=== PATIENT | male | born 1935 | race Caucasian/White ===

== ENCOUNTER 2021-01-10 14:01 | Emergency (ER) | payer OTHER ==
[2021-01-10] MEDS ORDERED: PHENYLEPHRINE 0.5% NOSE 15ML NAS ONE (14:46)
--- NOTE | 2021-01-10 16:26 | ER ---
Nurse's Notes [facility] Name: Bert Lopez Age: 85 yrs Sex: Male : 1935 Arrival Date: 01/10/2021 Time: 14:02 Bed 19 Private MD: Diagnosis: Epistaxis Presentation: 01/10 14:07 Method Of Arrival: Wheelchair aa5 14:07 Acuity: BENNY 2 aa5 14:07 Onset of symptoms was January 10, 2021. aa5 14:07 Chief complaint: Patient states: "I started with a nose bleed this morning and I got it aa5 under control and I went out to eat and then it started bleeding again about an hour ago". Bleeding noted to right nostril, nose clip applied, bleeding controlled at this time. 14:07 Coronavirus screen: At this time, the client does not indicate any symptoms associated aa5 with coronavirus-19. Ebola Screen: Patient negative for fever greater than or equal to 101.5 degrees Fahrenheit, and additional compatible Ebola Virus Disease symptoms. Initial Sepsis Screen: Does the patient meet any 2 criteria? No. Patient's initial sepsis screen is negative. Does the patient have a suspected source of infection? No. Patient's initial sepsis screen is negative. Risk Assessment: Do you want to hurt yourself or someone else? Patient reports no desire to harm self or others. Triage Assessment: 14:30 General: Appears distressed, uncomfortable, Behavior is cooperative, appropriate for bp age, anxious. Pain: Denies pain. EENT: Nares with bleeding noted. Neuro: No deficits noted. Cardiovascular: No deficits noted. Respiratory: No deficits noted. GI: No signs and/or symptoms were reported involving the gastrointestinal system. : No signs and/or symptoms were reported regarding the genitourinary system. Derm: No deficits noted. Musculoskeletal: No deficits noted. Historical: - Allergies: 14:17 No Known Allergies; aa5 - PMHx: 14:17 Hypertension; Atrial Fib; PROSTATE CA; aa5 - PSHx: 14:17 Hernia repair; Tonsillectomy; aa5 - Social history:: Smoking status: Patient denies any tobacco usage or history of. Screenin:30 Abuse screen: Denies threats or abuse. Denies injuries from another. Nutritional bp screening: No deficits noted. Tuberculosis screening: No symptoms or risk factors identified. Fall Risk None identified. Assessment: 14:30 General: SEE TRIAGE NOTE. bp 16:00 Reassessment: No changes from previously documented assessment. Patient and/or family bp updated on plan of care and expected duration. Pain level reassessed. Patient is alert, oriented x 3, equal unlabored respirations, skin warm/dry/pink. 17:00 Reassessment: PT D/C HOME AMBULATORY WITH FAMILY, DX WITH EPISTAXIS. bp Vital Signs: 14:07 BP 175 / 111; Pulse 73; Resp 18 S; Temp 98.0(TE); Pulse Ox 98% on R/A; Weight 112.94 kg aa5 (R); Height 5 ft. 11 in. (180.34 cm) (R); 16:00 BP 165 / 85; Pulse 63; Resp 16; Pulse Ox 100% ; bp 17:00 BP 169 / 95; Pulse 71; Resp 17; Temp 98; Pulse Ox 99% ; bp 14:07 Body Mass Index 34.73 (112.94 kg, 180.34 cm) aa5 ED Course: 14:02 Patient arrived in ED. as 14:07 Arm band placed on. aa5 14:11 Billy Tapia NP is PHCP. pm1 14:11 Kalen Dempsey MD is Attending Physician. pm1 14:15 Triage completed. aa5 14:30 Patient has correct armband on for positive identification. Bed in low position. Call bp light in reach. Side rails up X2. Adult w/ patient. 14:38 Alexandr Reyes, EUFEMIA is Primary Nurse. bp 16:00 Assist provider with eye exam Assist provider with nosebleed control using Afrin bp sprays, rhino rocket placed for extensive packing needs. 16:25 Rayna Encarnacion MD is Referral Physician. pm1 17:00 Patient did not have IV access during this emergency room visit. bp Administered Medications: 14:45 Drug: Favian-Synephrine [place] 0.5 % 2 sprays Route: Intranasal; Site: both nares; bp Outcome: 16:25 Discharge ordered by . pm1 17:03 Discharged to home ambulatory, with family. bp 17:03 Condition: stable 17:03 Discharge instructions given to patient, Instructed on discharge instructions, follow up and referral plans. Demonstrated understanding of instructions, follow-up care. 17:12 Patient left the ED. bp Signatures: Charlene Whipple Audri, RN RN aa5 Billy Tapia, EXPERIMENTAL MACHINIST EXPERIMENTAL MACHINIST pm1 Alexandr Reyes RN RN bp
--- NOTE | 2021-01-10 16:26 | EDPHYS ---
Physician Documentation [facility] Name: Bert Lopez Age: 85 yrs Sex: Male : 1935 Arrival Date: 01/10/2021 Time: 14:02 Bed 19 Private MD: ED Physician Kalen Dempsey HPI: 01/10 15:05 This 85 yrs old Male presents to ER via Wheelchair with complaints of Nose pm1 Bleed. 15:05 The patient presents with a nose bleed, causative factors include: NOAC and the pm1 bleeding is not resolved and continues in ER. Onset: The symptoms/episode began/occurred this morning. Modifying factors: the symptoms are aggravated by Patient believes that he accidentally took one extra dose of his NOAC. Associated signs and symptoms: Pertinent negatives: cough, ear ache, fever, lightheadedness, shortness of breath, sore throat. Severity of symptoms: in the emergency department the symptoms are unchanged. The patient has not recently seen a physician. 15:05 Patient was able to stop his nose bleed this morning with pressure. Went out to lunch pm1 with his family and then he was unable to stop it. Historical: - Allergies: 14:17 No Known Allergies; aa5 - PMHx: 14:17 Hypertension; Atrial Fib; PROSTATE CA; aa5 - PSHx: 14:17 Hernia repair; Tonsillectomy; aa5 - Social history:: Smoking status: Patient denies any tobacco usage or history of. ROS: 15:05 Constitutional: Negative for fever, chills, and weight loss. pm1 15:05 Cardiovascular: Negative for chest pain, palpitations, and edema, Respiratory: Negative for shortness of breath, cough, wheezing, and pleuritic chest pain, Neuro: Negative for headache, weakness, numbness, tingling, and seizure. 15:05 ENT: Positive for nose bleed, Negative for ear pain, sinus congestion, sinus pain, sore throat. 15:05 All other systems are negative. Exam: 15:05 Constitutional: This is a well developed, well nourished patient who is awake, alert, pm1 and in no acute distress. Head/Face: Normocephalic, atraumatic. 15:05 Skin: Warm, dry with normal turgor. Normal color with no rashes, no lesions, and no evidence of cellulitis. MS/ Extremity: Pulses equal, no cyanosis. Neurovascular intact. Full, normal range of motion. 15:05 ENT: Nose: bleeding, is seen from the right nare, clotted blood, in left nare. 15:05 Cardiovascular: Exam negative for acute changes, Rate: normal, Rhythm: regular, Pulses: no pulse deficits are appreciated. 15:05 Respiratory: Exam negative for acute changes, respiratory distress, shortness of breath. 15:05 Neuro: Exam negative for acute changes, Orientation: is normal, Mentation: is normal, Motor: is normal, moves all fours. Vital Signs: 14:07 BP 175 / 111; Pulse 73; Resp 18 S; Temp 98.0(TE); Pulse Ox 98% on R/A; Weight 112.94 kg aa5 (R); Height 5 ft. 11 in. (180.34 cm) (R); 16:00 BP 165 / 85; Pulse 63; Resp 16; Pulse Ox 100% ; bp 17:00 BP 169 / 95; Pulse 71; Resp 17; Temp 98; Pulse Ox 99% ; bp 14:07 Body Mass Index 34.73 (112.94 kg, 180.34 cm) aa5 Procedures: 22:45 Epistaxis treatment: A small amount of bleeding noted from right nare. Treated using pm1 anterior packing, Nasal tampon, Merocel, Bleeding stopped. MDM: 14:13 Patient medically screened. pm1 15:15 Data reviewed: vital signs. Data interpreted: Pulse oximetry: on room air is 98 %. pm1 Interpretation: normal. 16:25 Counseling: I had a detailed discussion with the patient and/or guardian regarding: the pm1 historical points, exam findings, and any diagnostic results supporting the discharge/admit diagnosis, the need for outpatient follow up, an ENT specialist, to return to the emergency department if symptoms worsen or persist or if there are any questions or concerns that arise at home. Administered Medications: 14:45 Drug: Favian-Synephrine [place] 0.5 % 2 sprays Route: Intranasal; Site: both nares; bp Disposition: 01/11 08:57 Co-signature as Attending Physician, Kalen Dempsey MD I agree with the assessment and rocky plan of care. Disposition: 01/10/21 16:25 Discharged to Home. Impression: Epistaxis. - Condition is Stable. - Discharge Instructions: Nosebleed, Adult. - Medication Reconciliation Form, Thank You Letter, Antibiotic Education, Prescription Opioid Use form. - Follow up: Emergency Department; When: As needed; Reason: Worsening of condition. Follow up: Private Physician; When: 2 - 3 days; Reason: Recheck today's complaints, Continuance of care, Re-evaluation by your physician. Follow up: Rayna Encarnacion; When: 2 - 3 days; Reason: Recheck today's complaints, Continuance of care, Re-evaluation by your physician. - Problem is new. - Symptoms have improved. Signatures: Kalen Dempsey MD MD cha Calderon, Audri, RN RN aa5 Billy Tapia NP SCIENTIFIC ASSOCIATE pm1 Alexandr Reyes, RN RN bp Corrections: (The following items were deleted from the chart) 01/10 17:12 16:25 01/10/2021 16:25 Discharged to Home. Impression: Epistaxis. Condition is Stable. bp Discharge Instructions: Nosebleed, Adult. Forms are Medication Reconciliation Form, Thank You Letter, Antibiotic Education, Prescription Opioid Use. Follow up: Emergency Department; When: As needed; Reason: Worsening of condition. Follow up: Private Physician; When: 2 - 3 days; Reason: Recheck today's complaints, Continuance of care, Re-evaluation by your physician. Follow up: Rayna Encarnacion; When: 2 - 3 days; Reason: Recheck today's complaints, Continuance of care, Re-evaluation by your physician. Problem is new. Symptoms have improved. pm1
[2021-01-10 17:19] VITALS: BP 169/95; TEMP 98; O2SAT 99
== END 2021-01-10 17:12 | disposition home or self-care (01) ==
LOC: ER 14:01
PROC: 2Y41X5Z Packing of Nasal Region using Packing Material (ICD-10-PCS; principal; 2021-01-10)
DX: R04.0 Epistaxis (principal); I10 Essential (primary) hypertension
CPT/HCPCS: 30901; 99283

== ENCOUNTER 2021-02-15 08:38 | Emergency (ER) | payer OTHER ==
[2021-02-15] MEDS ORDERED: NA CHLORIDE 0.9% 1,000 ML ONE (09:47)
[2021-02-15] MEDS ORDERED: PHENYLEPHRINE 0.5% NOSE 15ML NAS ONE (10:37)
[2021-02-15 10:47] LABS: Absolute Lymphocytes (CBC) 0.8 K/uL (0.7-4.9); Basophils % 0.3 % (0-1.3); Hematocrit 38.3 % (39.6-49.0); Lymphocytes % 9.1 % (15.3-44.8); MPV 7.6 fL (7.6-11.3); RBC Red Blood Cell Count 4.54 M/uL (4.33-5.43)
[2021-02-15 10:53] LABS: Protime INR 1.49
[2021-02-15 11:03] LABS: ALT/SGPT 20 U/L (12-78); AST/SGOT 16 U/L (15-37); Albumin 3.5 g/dL (3.4-5.0); Alkaline Phosphatase 82 U/L (45-117); BUN Blood Urea Nitrogen 28 mg/dL (7-18); Bicarbonate 25 mmol/L (21-32); Bilirubin Direct 0.1 mg/dL (0-0.2); Bilirubin Total 0.4 mg/dL (0.2-1.0); Glucose Level 111 mg/dL (74-106); Magnesium 2.3 mg/dL (1.8-2.4); NT PRO-BNP 242 pg/mL (<450); Potassium 4.3 mmol/L (3.5-5.1); Protein, Total 7.8 g/dL (6.4-8.2); Sodium Level 140 mmol/L (136-145); Troponin (Emerg Dept Use Only) < 0.02 ng/mL (0.0-0.045)
[2021-02-15] MEDS ORDERED: CEFTRIAXONE/SWI 1gm 1 GM/10 ML SYR ONE (11:03)
[2021-02-15] MEDS ORDERED: AMLODIPINE 10 MG TAB ONE (11:03)
[2021-02-15] MEDS ORDERED: cloNIDine HCL 0.1 MG TAB ONE (11:03)
[2021-02-15] MEDS ORDERED: METOPROLOL TAR 50 MG TAB ONE (11:03)
--- NOTE | 2021-02-15 11:19 | RAD REPORT ---
EXAM DESCRIPTION: RAD - Chest Single View - 02/15/2021 9:42 am CLINICAL HISTORY: COUGH COMPARISON: Portable January 2017 TECHNIQUE: AP portable chest image was obtained 02/15/2021 9:42 am . FINDINGS: Scattered fibrotic lung changes are present more notable in each base. Interstitial patter n matches 2017. Heart and vasculature are normal. No measurable pleural effusion and no pneumothorax. No acute bony abnormality seen. No acute aortic findings suspected. IMPRESSION: No acute cardiopulmonary process. No significant change from comparison study.
--- NOTE | 2021-02-15 11:42 | ER ---
Nurse's Notes [facility] Name: Bert Lopez Age: 85 yrs Sex: Male : 1935 Arrival Date: 02/15/2021 Time: 08:38 Bed 7 Private MD: Diagnosis: Epistaxis;Essential (primary) hypertension;Atrial fibrillation and flutter-history, on Xarelto Presentation: 02/15 08:49 Chief complaint: Patient states: Nasal bleeding since 2 am. No trauma or falls, on ll1 xarelto. Coronavirus screen: Client denies travel out of the [place] in the last 14 days. At this time, the client does not indicate any symptoms associated with coronavirus-19. Ebola Screen: Patient denies travel to an Ebola-affected area in the 21 days before illness onset. Initial Sepsis Screen: Does the patient meet any 2 criteria? No. Patient's initial sepsis screen is negative. Does the patient have a suspected source of infection? Yes: Other: nasal bleeding. Risk Assessment: Do you want to hurt yourself or someone else? Patient reports no desire to harm self or others. Onset of symptoms was February 15, 2021. 08:49 Method Of Arrival: Ambulatory ll1 08:49 Acuity: BENNY 2 ll1 Historical: - Allergies: 08:50 No Known Allergies; ll1 - Home Meds: 10:40 levothyroxine 125 mcg tab 1 tab once daily [Active]; simvastatin 20 mg Oral tab 1 tab kg once daily [Active]; finasteride 5 mg oral tab 1 tab once daily [Active]; Xarelto 20 mg oral tab 1 tab once daily [Active]; memantine 10 mg oral tab 1 tab 2 times per day [Active]; metoprolol tartrate 50 mg Oral tab 1 tab 2 times per day [Active]; esomeprazole magnesium 20 mg oral cpDR 1 cap once daily [Active]; Vitamin B-12 2500 mcg Oral TbER daily [Active]; D3-2000 oral 5000 units oral daily [Active]; - PMHx: 08:50 Atrial Fib; Hypertension; PROSTATE CA; ll1 - PSHx: 08:50 Hernia repair; Tonsillectomy; ll1 - Immunization history:: Flu vaccine is up to date. - Social history:: Smoking status: Patient denies any tobacco usage or history of. - Family history:: not pertinent. Screenin:34 Abuse screen: Denies threats or abuse. Denies injuries from another. Nutritional kg screening: No deficits noted. Tuberculosis screening: No symptoms or risk factors identified. Fall Risk None identified. No fall in past 12 months (0 pts). No secondary diagnosis (0 pts). No IV (0 pts). Ambulatory Aid- None/Bed Rest/Nurse Assist (0 pts). Gait- Normal/Bed Rest/Wheelchair (0 pts) Mental Status- Oriented to own ability (0 pts). Total Jiang Fall Scale indicates No Risk (0-24 pts). Assessment: 09:32 General: Appears in no apparent distress. Behavior is calm, cooperative, appropriate kg for age, quiet. Pain: Denies pain. Neuro: No deficits noted. Cardiovascular: No deficits noted. Respiratory: No deficits noted. GI: No deficits noted. : No deficits noted. EENT: Nares with bleeding noted. Derm: No deficits noted. Musculoskeletal: No deficits noted. Vital Signs: 08:49 BP 187 / 123; Pulse 88; Resp 18; Temp 97.2; Pulse Ox 97% on R/A; Weight 107.95 kg; ll1 Height 5 ft. 11 in. (180.34 cm); Pain 0/10; 09:30 BP 164 / 113; Pulse 96; Resp 20; Pulse Ox 96% ; kg 09:30 BP 166 / 125; Pulse 96; Resp 20; Pulse Ox 96% on R/A; kg 10:00 BP 157 / 119; Pulse 90; Resp 20; Pulse Ox 99% on R/A; kg 11:00 BP 175 / 130; Pulse 92; Resp 20; Pulse Ox 97% ; kg 12:00 BP 162 / 116; Pulse 90; Resp 20; Pulse Ox 99% on R/A; kg 08:49 Body Mass Index 33.19 (107.95 kg, 180.34 cm) ll1 ED Course: 08:38 Patient arrived in ED. as 08:44 Arm band placed on Patient placed in an exam room, on a stretcher. ll1 08:46 Kalen Dempsey MD is Attending Physician. [facility] 08:50 Triage completed. ll1 09:24 Bárbara Acevedo is Primary Nurse. kg 09:35 Patient has correct armband on for positive identification. Bed in low position. Call kg light in reach. Side rails up X2. Adult w/ patient. 09:42 XRAY Chest (1 view) In Process Unspecified. EDMS 10:30 Inserted saline lock: 20 gauge in right antecubital area, using aseptic technique. kg 11:42 Chloe Ascencio MD is Referral Physician. rocky Administered Medications: 10:29 CANCELLED (Duplicate Order): Rocephin (cefTRIAXone) 1 grams IV at per protocol once; rocky Given slow IV push per pharmacy instructions 10:43 Drug: NS 0.9% 1000 ml Route: IV; Rate: 75 ml/hr; Site: right antecubital; kg 12:01 Follow up: Response: No adverse reaction; IV Status: Completed infusion; IV Intake: kg 1000ml 10:43 Drug: cloNIDine 0.1 mg Route: PO; kg 12:01 Follow up: Response: No adverse reaction kg 10:43 Drug: Norvasc (amlodipine) 10 mg Route: PO; kg 12:01 Follow up: Response: No adverse reaction kg 10:43 Drug: Lopressor (metoprolol TARTRATE) 50 mg Route: PO; kg 12:01 Follow up: Response: No adverse reaction kg 10:44 Drug: Rocephin (cefTRIAXone) 1 grams Route: IV; Rate: per protocol; Site: right kg antecubital; Intake: 12:01 IV: 1000ml; Total: 1000ml. kg Outcome: 11:42 Discharge ordered by . rocky 12:01 Patient left the ED. kg Signatures: Dispatcher [employer] EDKalen Leblanc MD MD cha Martinez, Amelia as Lewis, Lynsay RN RN ll1 Bárbara Acevedo kg
--- NOTE | 2021-02-15 11:42 | EDPHYS ---
Physician Documentation [facility] Name: Bert Lopez Age: 85 yrs Sex: Male : 1935 Arrival Date: 02/15/2021 Time: 08:38 Bed 7 Private MD: ED Physician Kalen Dempsey HPI: 02/15 10:25 This 85 yrs old Male presents to ER via Ambulatory with complaints of Nose rocky Bleed. 10:25 The patient presents with a nose bleed, and the bleeding resolved prior to arrival. rocky Onset: The symptoms/episode began/occurred 1 day(s) ago. Modifying factors: The symptoms are alleviated by nothing. the symptoms are aggravated by blowing nose. Associated signs and symptoms: The patient has no apparent associated signs or symptoms. Severity of symptoms: At their worst the symptoms were mild in the emergency department the symptoms have improved moderately. The patient has experienced similar episodes in the past, multiple times. Historical: - Allergies: 08:50 No Known Allergies; ll1 - Home Meds: 10:40 levothyroxine 125 mcg tab 1 tab once daily [Active]; simvastatin 20 mg Oral tab 1 tab kg once daily [Active]; finasteride 5 mg oral tab 1 tab once daily [Active]; Xarelto 20 mg oral tab 1 tab once daily [Active]; memantine 10 mg oral tab 1 tab 2 times per day [Active]; metoprolol tartrate 50 mg Oral tab 1 tab 2 times per day [Active]; esomeprazole magnesium 20 mg oral cpDR 1 cap once daily [Active]; Vitamin B-12 2500 mcg Oral TbER daily [Active]; D3-2000 oral 5000 units oral daily [Active]; - PMHx: 08:50 Atrial Fib; Hypertension; PROSTATE CA; ll1 - PSHx: 08:50 Hernia repair; Tonsillectomy; ll1 - Immunization history:: Flu vaccine is up to date. - Social history:: Smoking status: Patient denies any tobacco usage or history of. - Family history:: not pertinent. ROS: 10:25 Constitutional: Negative for fever, chills, and weight loss, Eyes: Negative for injury, rocky pain, redness, and discharge, Neck: Negative for injury, pain, and swelling, Cardiovascular: Negative for chest pain, palpitations, and edema, Respiratory: Negative for shortness of breath, cough, wheezing, and pleuritic chest pain, Abdomen/GI: Negative for abdominal pain, nausea, vomiting, diarrhea, and constipation, Back: Negative for injury and pain, : Negative for injury, bleeding, discharge, and swelling, MS/Extremity: Negative for injury and deformity, Skin: Negative for injury, rash, and discoloration, Neuro: Negative for headache, weakness, numbness, tingling, and seizure, Psych: Negative for depression, anxiety, suicide ideation, homicidal ideation, and hallucinations, Allergy/Immunology: Negative for hives, rash, and allergies, Endocrine: Negative for neck swelling, polydipsia, polyuria, polyphagia, and marked weight changes. 10:25 ENT: Positive for nose bleed. Exam: 10:25 Constitutional: This is a well developed, well nourished patient who is awake, alert, rocky and in no acute distress. Head/Face: Normocephalic, atraumatic. Eyes: Pupils equal round and reactive to light, extra-ocular motions intact. Lids and lashes normal. Conjunctiva and sclera are non-icteric and not injected. Cornea within normal limits. Periorbital areas with no swelling, redness, or edema. Neck: Trachea midline, no thyromegaly or masses palpated, and no cervical lymphadenopathy. Supple, full range of motion without nuchal rigidity, or vertebral point tenderness. No Meningismus. Chest/axilla: Normal chest wall appearance and motion. Nontender with no deformity. No lesions are appreciated. Cardiovascular: Regular rate and rhythm with a normal S1 and S2. No gallops, murmurs, or rubs. Normal PMI, no JVD. No pulse deficits. Respiratory: Lungs have equal breath sounds bilaterally, clear to auscultation and percussion. No rales, rhonchi or wheezes noted. No increased work of breathing, no retractions or nasal flaring. Abdomen/GI: Soft, non-tender, with normal bowel sounds. No distension or tympany. No guarding or rebound. No evidence of tenderness throughout. Back: No spinal tenderness. No costovertebral tenderness. Full range of motion. Skin: Warm, dry with normal turgor. Normal color with no rashes, no lesions, and no evidence of cellulitis. MS/ Extremity: Pulses equal, no cyanosis. Neurovascular intact. Full, normal range of motion. Neuro: Awake and alert, GCS 15, oriented to person, place, time, and situation. Cranial nerves II-XII grossly intact. Motor strength 5/5 in all extremities. Sensory grossly intact. Cerebellar exam normal. Normal gait. Psych: Awake, alert, with orientation to person, place and time. Behavior, mood, and affect are within normal limits. 10:25 ENT: Nose: External nose: no obvious acute abnormality, Nasal septum: is midline. 10:32 ECG was reviewed by the Attending Physician. [facility] Vital Signs: 08:49 BP 187 / 123; Pulse 88; Resp 18; Temp 97.2; Pulse Ox 97% on R/A; Weight 107.95 kg; ll1 Height 5 ft. 11 in. (180.34 cm); Pain 0/10; 09:30 BP 164 / 113; Pulse 96; Resp 20; Pulse Ox 96% ; kg 09:30 BP 166 / 125; Pulse 96; Resp 20; Pulse Ox 96% on R/A; kg 10:00 BP 157 / 119; Pulse 90; Resp 20; Pulse Ox 99% on R/A; kg 11:00 BP 175 / 130; Pulse 92; Resp 20; Pulse Ox 97% ; kg 12:00 BP 162 / 116; Pulse 90; Resp 20; Pulse Ox 99% on R/A; kg 08:49 Body Mass Index 33.19 (107.95 kg, 180.34 cm) ll1 MDM: 08:46 Patient medically screened. [facility] 11:41 Differential diagnosis: trauma, spontaneous epistaxis. Data reviewed: vital signs, [facility] nurses notes, lab test result(s), EKG, radiologic studies, CT scan, plain films. Data interpreted: telecommunication engineer: rate is 90 beats/min, rhythm is regular, Pulse oximetry: on room air is 99 %. Test interpretation: by ED physician or midlevel provider: ECG, plain radiologic studies. Counseling: I had a detailed discussion with the patient and/or guardian regarding: the historical points, exam findings, and any diagnostic results supporting the discharge/admit diagnosis, lab results, radiology results, the need for outpatient follow up, for definitive care, an ENT specialist, a family practitioner. 02/15 08:48 Order name: Basic Metabolic Panel; Complete Time: 11:40 [facility] 02/15 08:48 Order name: CBC with Diff 02/15 08:48 Order name: LFT's; Complete Time: 11:40 [facility] 02/15 08:48 Order name: Magnesium; Complete Time: 11:40 [facility] 02/15 08:48 Order name: NT PRO-BNP; Complete Time: 11:40 [facility] 02/15 08:48 Order name: PT-INR; Complete Time: 11:40 [facility] 02/15 08:48 Order name: Troponin (emerg Dept Use Only); Complete Time: 11:40 [facility] 02/15 08:48 Order name: XRAY Chest (1 view); Complete Time: 11:40 [facility] 02/15 08:48 Order name: EKG; Complete Time: 08:49 [facility] 02/15 08:48 Order name: Cardiac monitoring; Complete Time: 09: [facility] 02/15 08:48 Order name: EKG - Nurse/Tech; Complete Time: 09: [facility] 02/15 08:48 Order name: IV Saline Lock; Complete Time: 09: [facility] 02/15 08:48 Order name: Labs collected and sent; Complete Time: 09: [facility] 02/15 08:48 Order name: O2 Per Protocol; Complete Time: 09: [facility] 02/15 08:48 Order name: O2 Sat Monitoring; Complete Time: 09: [facility] 02/15 08:48 Order name: Misc. Order: nasal tray, ion synephrine spray, rhino rocket; Complete Time: [facility] 10:21 EC:32 Rate is 92 beats/min. Rhythm is regular. QRS [place] is Normal. NC interval is normal. QRS rocky interval is normal. QT interval is normal. No Q waves. T waves are Normal. No ST changes noted. Clinical impression: Normal ECG, 1st degree heart block, and No evidence of ischemia. Interpreted by me. Reviewed by me. Administered Medications: 10:29 CANCELLED (Duplicate Order): Rocephin (cefTRIAXone) 1 grams IV at per protocol once; rocky Given slow IV push per pharmacy instructions 10:43 Drug: NS 0.9% 1000 ml Route: IV; Rate: 75 ml/hr; Site: right antecubital; kg 12:01 Follow up: Response: No adverse reaction; IV Status: Completed infusion; IV Intake: kg 1000ml 10:43 Drug: cloNIDine 0.1 mg Route: PO; kg 12:01 Follow up: Response: No adverse reaction kg 10:43 Drug: Norvasc (amlodipine) 10 mg Route: PO; kg 12:01 Follow up: Response: No adverse reaction kg 10:43 Drug: Lopressor (metoprolol TARTRATE) 50 mg Route: PO; kg 12:01 Follow up: Response: No adverse reaction kg 10:44 Drug: Rocephin (cefTRIAXone) 1 grams Route: IV; Rate: per protocol; Site: right kg antecubital; Disposition: 02/15/21 11:42 Discharged to Home. Impression: Epistaxis, Essential (primary) hypertension, Atrial fibrillation and flutter - history, on Xarelto. - Condition is Stable. - Discharge Instructions: Nosebleed, Adult, Hypertension, Hypertension, [id number], How to Take Your Blood Pressure, Ljul-po-Yeum, Nosebleed, Gxiq-bq-Ozhc, Managing Your Hypertension. - Prescriptions for Augmentin 875- 125 mg Oral Tablet - take 1 tablet by ORAL route every 12 hours for 10 days; 20 tablet. Lopressor 50 mg Oral Tablet - take 1 tablet by ORAL route every 12 hours; 30 tablet. Norvasc 5 mg Oral Tablet - take 1 tablet by ORAL route once daily; 20 tablet. - Medication Reconciliation Form, Thank You Letter, Antibiotic Education, Prescription Opioid Use form. - Follow up: Private Physician; When: 1 - 2 days; Reason: Recheck today's complaints, Continuance of care, Re-evaluation by your physician. Follow up: Chloe Ascencio; When: 2 - 3 days; Reason: Recheck today's complaints, Re-evaluation by your physician. - Problem is new. - Symptoms have improved. Signatures: Dispatcher [employer] EDCA Kalen Dempsey MD MD cha Lewis, Lynsay RN RN ll1 Bárbara Acevedo kg Corrections: (The following items were deleted from the chart) 10:29 10:29 Rocephin (cefTRIAXone) 1 grams IV at per protocol once; Given slow IV push per [facility] pharmacy instructions ordered. [facility] 12:01 11:42 02/15/2021 11:42 Discharged to Home. Impression: Epistaxis; Essential (primary) kg hypertension; Atrial fibrillation and flutter - history, on Xarelto. Condition is Stable. Discharge Instructions: Nosebleed, Adult, Hypertension, Hypertension, Qxmf-sq-[id number], How to Take Your Blood Pressure, Nlqb-gz-Wurx, Nosebleed, Azdc-pa-Sjow, Managing Your Hypertension. Prescriptions for Augmentin 875-125 mg Oral Tablet - take 1 tablet by ORAL route every 12 hours for 10 days; 20 tablet, Lopressor 50 mg Oral Tablet - take 1 tablet by ORAL route every 12 hours; 30 tablet, Norvasc 5 mg Oral Tablet - take 1 tablet by ORAL route once daily; 20 tablet. and Forms are Medication Reconciliation Form, Thank You Letter, Antibiotic Education, Prescription Opioid Use. Follow up: Private Physician; When: 1 - 2 days; Reason: Recheck today's complaints, Continuance of care, Re-evaluation by your physician. Follow up: Chloe Ascencio; When: 2 - 3 days; Reason: Recheck today's complaints, Re-evaluation by your physician. Problem is new. Symptoms have improved. rocky
[2021-02-15 12:16] VITALS: TEMP 97.2
[2021-02-15 12:17] LABS: Blood Morphology Comment NOT SEEN (NOT SEEN); Platelet Estimate ADEQ
[2021-02-15 12:24] VITALS: BP 162/116; O2SAT 99
--- NOTE | 2021-02-16 11:35 | EKG ---
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
== END 2021-02-15 12:01 | disposition home or self-care (01) ==
LOC: ER 08:38
PROC: 2Y41X5Z Packing of Nasal Region using Packing Material (ICD-10-PCS; principal; 2021-02-15)
DX: R04.0 Epistaxis (principal); I10 Essential (primary) hypertension; I48.91 Unspecified atrial fibrillation; I48.92 Unspecified atrial flutter; Z79.01 Long term (current) use of anticoagulants; Z85.46 Personal history of malignant neoplasm of prostate
CPT/HCPCS: 96361; 93005; 85025; 80048; 36415; 83735; 85610; 80076; 84484; 83880; 71045; 96374; 99284; 30901; J0696; J7030

== ENCOUNTER 2025-06-07 11:05 | Inpatient (IN) | payer OTHER ==
[2025-06-07 11:29] VITALS: BMI 28.4
[2025-06-07] MEDS ORDERED: MAGNESIUM HYDROXIDE 8% 30 ML PO PRN (12:30)
[2025-06-07] MEDS ORDERED: ACETAMINOPHEN 325 MG TABLET PO PRN ×2 (12:56→20:06)
[2025-06-07 13:03] LABS: Urine Microscopic Reflex YN NO UMIC
[2025-06-07] MEDS: BACLOFEN 10 MG TAB PO SCH ×2 (14:19→20:47)
[2025-06-07] MEDS: COCONUT OIL PO SCH (20:00)
[2025-06-07] MEDS: METOPROLOL XL 25 MG TAB PO SCH ×2 (20:00→20:47)
[2025-06-07] MEDS: [UNRECOGNIZED DRUG - OTHER] PO SCH (20:00)
[2025-06-07] MEDS ORDERED: GUAIFENESIN/DM 5 ML UCUP PO PRN (20:04)
[2025-06-07] MEDS ORDERED: TRAMADOL HCL 50 MG TAB PO PRN (20:04)
[2025-06-07] MEDS: MEMANTINE HCL 10 MG TABLET PO SCH (20:44)
[2025-06-07] MEDS: RIVAROXABAN 15 MG TABLET PO SCH (20:44)
[2025-06-07] MEDS: ATORVASTATIN 10 MG TAB PO SCH (20:44)
[2025-06-07] MEDS: MELATONIN 5 MG TABLET PO SCH (20:44)
[2025-06-07] MEDS: CIPROFLOXACIN HCL 500 MG TAB PO SCH (20:44)
[2025-06-07] MEDS: LORATADINE 10 MG TAB PO SCH (20:44)
[2025-06-07] MEDS: DONEPEZIL HCL 5 MG TAB PO SCH (20:47)
[2025-06-07] MEDS ORDERED: DONEPEZIL HCL 5 MG TAB PO SCH (21:00)
[2025-06-08 06:07] LABS: Absolute Lymphocytes (CBC) 0.9 K/uL (0.7-4.9); Hematocrit 28.1 % (39.6-49.0); Hemoglobin 9.2 g/dL (13.6-17.9); MCH 27.0 pg (27.0-35.0); MCHC 32.8 g/dL (32.0-36.0); MCV 82.2 fL (80-100); MPV 6.8 fL (7.6-11.3); Nucleated RBC Absolute Count 0.0 (0-0); Nucleated Red Blood Cells % 0.0 % (0-0); RBC Red Blood Cell Count 3.42 M/uL (4.33-5.43); White Blood Count 5.80 thou/uL (4.3-10.9)
[2025-06-08] MEDS: PANTOPRAZOLE 40MG TABLET PO SCH (06:19)
[2025-06-08] MEDS: LEVOTHYROXINE SOD 0.125 MG TAB PO SCH (06:19)
[2025-06-08 06:50] LABS: AST/SGOT 12.0 U/L (15-37); BUN Blood Urea Nitrogen 10.0 mg/dL (7-18); Glucose Level 131.0 mg/dL (74-106); Magnesium 2.2; Potassium 3.8 mEq/L (3.5-5.1)
[2025-06-08 06:51] LABS: ALT/SGPT 11.0 U/L (16-61); Albumin 2.6 g/dL (3.4-5.0); Albumin/Globulin Ratio 0.7 (1.1-1.8); Alkaline Phosphatase 858.0 U/L (45-117); Globulin 3.7 g/dL (2.3-3.5); Prealbumin 16.3 mg/dL (20-40)
[2025-06-08 06:52] LABS: Anion Gap 9.8 mEq/L (5.0-15.0); Thyroid Stimulating Hormone 2.43 uIU/mL (0.358-3.740)
[2025-06-08] MEDS: AMLODIPINE 5 MG TAB PO SCH (08:00)
[2025-06-08] MEDS ORDERED: AMLODIPINE 5 MG TAB PO SCH (08:00)
[2025-06-08] MEDS: VITAMIN D 1000 UNIT TAB PO SCH (08:29)
[2025-06-08] MEDS: CYANOCOBALAMIN 1,000 MCG TAB PO SCH (08:29)
[2025-06-08] MEDS: PSYLLIUM 1 PKT PO SCH (08:30)
[2025-06-08] MEDS: FINASTERIDE 5 MG TAB PO SCH (08:30)
[2025-06-08] MEDS: FERROUS SULFATE 325 MG TAB PO SCH (08:30)
--- NOTE | 2025-06-08 09:11 | HP ---
Date of Admission: 06/08/2025 Chief Complaint: Right knee pain. History Of Present Illness: This is an 89-year-old male patient, who was living at home, fell down on April 24, 2025 and was brought into an emergency room, was diagnosed as having fracture of the right patella and was transferred to outside hospital where he actually had surgery done by Dr. Francisco Lynch. After the surgery, the patient was sent to [facility] in [place] and yesterday, he was brought into our inpatient rehab for rehab therapy. I saw him this morning. There was no family member at bedside. I have reviewed available records from outside facility this morning. The patient denies any complaints this morning when I saw him. Allergies: NO KNOWN ALLERGIES. Medications: Amlodipine 5 mg daily, Nubeqa as prescribed by oncologist, donepezil 10 mg daily, finasteride 5 mg daily, levothyroxine 125 mcg daily, memantine 10 mg 2 times a day, metoprolol 25 mg 2 times a day, omeprazole 20 mg daily, Xarelto 15 mg daily, and simvastatin 20 mg daily at bedtime. Review of Systems: Musculoskeletal: Right knee pain. ACID BATH MIXER: Impaired memory. All other systems reviewed and negative. Past Medical History: Significant for hypertension, paroxysmal atrial fibrillation, hyperlipidemia, chronic anticoagulation therapy, prostate cancer, gastroesophageal reflux disease, colon cancer, chronic kidney disease stage IIIA, and vascular dementia. Past Surgical History: Recent surgery for right patella fracture and in the past, he had tonsillectomy, hernia repair, partial destruction of colon for colon cancer in 2018. Social History: Negative for smoking, alcohol use. Family History: Father , had dementia. Mother , had pericarditis. Brother , had melanoma. Physical Examination: Vital Signs: Temperature 97.5, pulse 72, respiratory rate 18, blood pressure 119/73, oxygen saturation 97% on room air. Height 5 feet 11 inches, weight 204 pounds. General: Awake, alert, oriented, not in distress. HEENT: Head atraumatic, normocephalic. Conjunctivae nonerythematous. Sclerae white. Mouth, no thrush or edema noted. Ears/Nose, no mass, lesion, discharge noted. Neck: Supple. No JVD, lymph nodes, bruit, thyromegaly noted. Lungs: Bilateral good equal air entry. Clear to auscultation. No rhonchi. No rales. Heart: Normal heart sounds, no murmur or gallop. Abdomen: Soft, bowel sounds normal. No guarding, rigidity, tenderness, mass, hepatosplenomegaly, distention, or bruit noted. Extremities: Right lower extremity has external brace in place. Visible area of the right anterior knee has very well-healed surgical scar. No evidence of any redness or swelling. Skin: No rash, ulcer, cellulitis. Lymphatics: No lymph node enlargement in neck, supraclavicular, infraclavicular region. Neuro: No focal neurological deficit. Chest: Unremarkable. External Genitalia: Deferred. Rectal: Deferred. Laboratory Data: Urinalysis normal. WBC 5.8, hemoglobin 9.2, platelets 231. Sodium 140, potassium 3.8, chloride 110, bicarb 24, BUN 10, creatinine 0.88, glucose 131. Liver function tests unremarkable. Pre-albumin 16.3, albumin 2.6. TSH 2.430. His knee x-ray from April 24, 2025, emergency room visit showed diffuse areas of sclerosis throughout the bony structure indicating metastatic disease and fracture involving mid aspect of the patella with minimal distraction, moderate osteoarthritis of knee. Impression: 1. Right patella fracture, transverse, with displacement, initial visit, status post surgery. 2. Anemia, chronic, unspecified. 3. Vascular dementia. 4. Hypertension. 5. Hyperlipidemia. 6. Paroxysmal atrial fibrillation. 7. Chronic kidney disease stage 3A. 8. 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 9. Colon cancer. 10. Gastroesophageal reflux disease. Plan: We will go ahead and admit the patient to inpatient rehab. Consult Dr. Palma to manage rehab therapy. I will continue to manage his medical management while on the rehab floor. For hypertension, we will continue his antihypertensive medication with monitoring of blood pressure if necessary adjust medication. For his vascular dementia, we will continue his donepezil and memantine per order. No need for further intervention. For hypothyroidism, he is on levothyroxine, which we will continue that, will not require any further intervention. For gastroesophageal reflux disease, we will continue his proton pump inhibitor therapy and no need for further intervention. The patient is on chronic anticoagulation therapy for atrial fibrillation with Xarelto, which will be continued. For hyperlipidemia, continue his statin therapy and no need for further intervention. Total time spent 65 minutes including review of outside medical record, review of emergency room visit record from 04/24/2025, review of last office visit record from 01/30/2025 and performing today's evaluation and management. TRAVIS/ADDIE Voice ID: [id number] DENTON
--- NOTE | 2025-06-08 14:46 | HP ---
Date of Admission: 06/07/2025 Time Of Service: 9 a.m. History Of The Present Illness: Mr. Lopez is an 89-year-old patient with bilateral lower extremity neuropathy, hypertension, obstructive sleep apnea, hypothyroidism, colon cancer about to start chemo, dyslipidemia, dementia, late onset Alzheimer. He was independent at home, living with his and children on their property, taking care of his own activities of daily living including driving when on 04/24/2025, he fell at home. He hit his right knee, had severe pain, was seen at [facility] , and found to have a right patella fracture. 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 He was referred to inpatient rehabilitation due to his medical compl exity and functional decline and acute surgery; however, that request was declined. However, the den ial was subsequently overturned on appeal and while awaiting clearance for his nonweightbearing statu s, he was sent to senior care to begin to improve. During senior care stay, he developed COVID and was put in isolation delaying his functional prog ression. On 06/03, he developed worsening confusion and was diagnosed with urinary tract infection a nd treated with Cipro. Also, he was at that time found to be more confused with sundowning. Further more, he had a drop in hemoglobin and hematocrit requiring the need potentially for transfusion and h ad to be monitored. On 06/07/2025, he set up to begin for colon cancer Nubeqa chemotherapy. In donny tion, chemotherapy as noted would likely worsen cognitive functioning and required more careful close medical monitoring. Mr. Lopez was evaluated by Therapy Service and found to require setup assistance for bed mobilizatio n, ambulation of 800 feet with a rolling walker due to the immobilizer and requiring Speech due to wo rsening cognitive functioning from his prolonged hospitalization care in senior care and patella fracture. He required izr-hu-cjpyl transfers at moderate to maximal assistance level. Lower body dr angela moderate to maximum assistance and cognitively oriented to person and requiring verbal cues fo r problem solving and to help him improve decision making and safety awareness. It was necessary for him to receive all disciplines of therapy as if he were to be discharged home or back to skilled [facility], he will likely worsen and . At inpatient rehabilitation, he will receive intensive coordinated interdisciplinary rehabilitation f rom physical, occupational, and speech therapy along with daily physician evaluation, social work lecturer , and 24-hour 7-day a week nursing. The recent orthopedic surgery, infections, instability of his he moglobin and hematocrit, and initiation of chemotherapy proved to be a complex case and cannot be man aged as noted at a lower level of care. Inpatient rehabilitation is necessary as if he were to be di scharged at a lower level of facility with chances of improving with return to his prior l evel of functioning. Past Medical History: As noted above. Past Surgical History: Colon resection, cataract extraction in addition to his comorbidities of atri al fibrillation, hypothyroidism, obstructive sleep apnea, hypertension, lower extremity neuropathy, g astroesophageal reflux disease, and Alzheimer disease. Allergies: NO KNOWN DRUG ALLERGIES. Medications: Tylenol 650 mg every 4 hours as needed, Norvasc 5 mg daily, Lipitor 10 mg at bedtime, b aclofen 5 mg twice daily, ciprofloxacin 500 mg twice daily, vitamin B12 1000 mg daily, Aricept 10 mg twice daily, ferrous sulfate 325 mg daily, Proscar 5 mg daily, Synthroid 0.125 mg daily, Claritin 5 m g at bedtime, milk of magnesia 30 mg daily, melatonin 5 mg at bedtime, Namenda 10 mg twice daily, Top rol 25 mg twice daily, Protonix 40 mg daily, Metamucil 1 packet daily, Xarelto 15 mg at bedtime, tram adol 50 mg every 4 hours as needed. Laboratory Studies: White blood cell count 5.8, hemoglobin 9.2, platelets 231. Sodium 140, potassiu m 3.8, chloride 110, carbon dioxide 24, BUN 10, creatinine 0.88, calcium 8.5, magnesium 2.2, albumin 3.7. AST 12, ALT 11, alkaline phosphate . TSH is 2.43. Urinalysis from the 13 complete ly normal. X-ray imaging pending. Family History: Noncontributory. Social History: The patient lives with and daughters and on his daughter's property. He was pr eviously independent with all of his activities with no alcohol, tobacco, or IV drug use. He was mob ile. Review of Systems: Currently, he denies any significant pain . No fevers or chills. Denies any myalgias, art hralgias, rash, headache. He is very happy and smiling and is ready to engage in his therapy. Current Level Of Functioning: Currently, Mr. Lopez is independent for eating, moderate assistance f or grooming, maximum assistance for bathing, standby assistance for upper body dressing, maximal assi stance for lower body dressing and for donning and doffing footwear. For his toileting, moderate ass istance. Transfer from bed to chair to wheelchair, and to toilet, moderate assistance. Ambulation, he covered 100 feet with setup assistance, wheelchair 10 feet with moderate assistance. Physical Examination: Vital Signs: Blood pressure 119/73, respiratory rate 18, temperature 97.5, and pulse 72, oxygen satu ration 97%. Weight 204 pounds, height 5 feet 11 inches, BMI of 28.5. General: Mr. Lopez is resting in bed in between therapy sessions. HEENT: He is normocephalic, atraumatic. Sclerae anicteric. Oropharynx pink and moist. Neck: Supple. Extremities: He does have the right knee brace in place and a well healed incision perpendicular amira ng the surface of the knee going into the leg and from the thigh and the brace is in place across the knee and thigh and the leg. In terms of focal deficits, he has no focal neurological deficits. Some difficulty following command s. Oriented to person, difficulty following complex commands. With the cuing, he is able to follow those well. Rehab And Medical Assessment And Plan: Mr. Lopez is an 89-year-old patient in the rehabilitation [facility] with impairment category 09, orthopedic. Impairment group code is 08.9, other orthopedic. [facility] diagnosis; right patella fracture. Comorbid Conditions: Alzheimer disease, decreased mobility, decreased physical function, lower extre mity neuropathy, hypertension, atrial fibrillation, hypothyroidism, colon cancer, chemothe rapy, dyslipidemia. Plan: We will have physical, occupational, and speech therapy for 3-1/2 hours 5 of 7 days. His isaac rbid conditions are managed by Dr. Villalta, his primary care physician. We will continue with Norvasc 5 mg daily and metoprolol 25 mg twice daily for blood pressure and heart rate control, ferrous sulfate 325 mg daily for his iron deficiency, continue his Cipro from 06/07 to 06/12 for his urinary tract i nfection, baclofen 5 mg twice a day for muscle spasms, Tylenol for pain, vitamin D on board supplemen t along with vitamin B12 supplementation. He has Aricept 10 mg twice daily along with Namenda 10 mg twice daily for Alzheimer disease, melatonin for insomnia, milk of magnesia for stool softening, laxa tives. He has Claritin for allergies, Xarelto for his atrial fibrillation, tramadol for pain. Comorbidities That Are Impacting Rehabilitation: As noted, Mr. Lopez does have cognitive impairment due to Alzheimer dementia and will require constant cuing for reminders to be aware of hazardous iss ues and to avoid risk of additional falls. He does have a knee brace in place and will be kept in pl art when he is mobilizing. He has weightbearing status where initially he was nonweightbearing after his surgery, which is now over a month and half ago, which is at 6 weeks and will be clarified with Surgery if he is full weightbearing or touchdown weightbearing or partial. He has additional risks from chemotherapy, anemia, infection in a complicated case where potentially he will require IV antibiotics, transfusion and may make impulsive decisions as well. He will be ___ station and chair alarm and bed alarm will be in place. Rehab Specific Plan: Mr. Lopez will have physical, occupational and speech therapy 3.5 hours, 5 of 7 days to improve his ability to transfer from a bed to a chair, to a wheelchair, to a rolling walker , on and off the toilet, in and out of shower, to perform toileting and showering, to dress upper low er body, to make safe decisions regarding his mobilization, transfers and medication management. Mr. Lopez has a fair understanding of the process of admission to the inpatient rehabilitation unit and how he will benefit from physical, occupational, and speech therapy. He will have 24 hours a day 7 days a week skilled rehabilitation nursing, daily physician evaluation and management, and social work lecturer evaluation and management for discharge planning, home equipment, and to have a physician gerry samano. At this point, he will be followed by Dr. Villalta, his primary care physician. Barriers To Discharge: He at this point has a cognitive issue, which may be a barrier; however, he d oes have family at home that can provide 24-hour supervision that he would require after going home a nd did anticipate he would not require senior care as he is expected to do very well t here. In terms of other barriers chemotherapy; however, those can be overcome with enough assistance and input from family and caregivers. Length Of Stay: About 10 days. Disposition: Expected to be home with family and continue therapy via Home Health. Prognosis: Good. Code Status: Full code. Rehab Specific Goals: 1. Become independent with upper body dressing and donning and doffing footwear. 2. Independently perform all activities of daily living. 3. Independently mobilize 250 feet with a rolling walker and wheelchair and up and down 10 steps inde pendently. 4. Perform cognitive functioning with supervision. The above goals were reviewed with Mr. Lopez and he is in agreement. By signing this document, I acknowledge I personally performed a full physical examination on Mr. Jose Antonio koehler no later than 24 hours after his admission to the inpatient rehabilitation unit and determined he is able to tolerate the above course of treatment at an intensive level for a reasonable period of t lencho. A detailed individualized plan of care for him will be completed by hospital day 4 based on the preadmission screen, history and physical and therapy evaluations. KAJAL Voice ID: [id number]
[2025-06-08] MEDS: [UNRECOGNIZED DRUG - OTHER] PO SCH (19:14)
[2025-06-08] MEDS: COCONUT OIL PO SCH (19:14)
--- NOTE | 2025-06-09 21:22 | PN ---
Date of Progress Note: 06/09/2025 Subjective: The patient was seen this morning for followup. He was lying in bed, not in any distres s. Denies any abdominal pain, nausea, or vomiting. Objective: Vital Signs: Reviewed. HEENT: Unremarkable. Lungs: Clear to auscultation. Heart: Sounds normal. Abdomen: Soft. Bowel sounds normal. No guarding, rigidity, tenderness, distention. Extremities: No leg edema. Impression: 1. Right patella fracture. 2. Hypertension. 3. Vascular dementia. Plan: Continue current medication. Continue physical therapy under guidance of Dr. Palma, and I will see him tomorrow for followup. TRAVIS/MODL Voice ID: [id number] Report ID: [id number]
--- NOTE | 2025-06-09 21:43 | PN ---
Date of Progress Note: 06/09/2025 Time: 1 p.m. Subjective: Mr. Lopez is resting in bed, very happy, smiling about his progress, so far, since ther e is no significant pain in the right knee where he had repair for a right patellar fracture. There is a brace in place. Objective: No fevers, chills, nausea, vomiting. No myalgias or arthralgias. No rash. No psychiatr ic complaints. Physical Examination: Vital Signs: Blood pressure 129/71, pulse 84, respiratory rate 18, temperature 97.2, oxygen saturati on 96%. Weight 204 pounds, height 5 feet 11 inches, BMI 28.5. General: Mr. Lopez is resting comfortably. He is in no severe distress. HEENT: He appears normocephalic, atraumatic. Sclerae anicteric. Oropharynx pink and moist. Neck: Supple. Extremities: No significant edema, cyanosis, or clubbing noted. Neurological: He is not fully cognizant of all going around him, although he follows instructions we ll. He is very communicative. Still has issues of cognitive impairment. Laboratory Studies: White blood cell count 5.8, hemoglobin 9.2, platelets 231. Sodium 140, potassiu m 3.8, chloride 111, carbon dioxide 24, BUN 10, creatinine 0.88, glucose 131, calcium 8.5, magnesium 2.2. AST is 12, ALT is 11, alkaline phosphatase very elevated at 858. It is noted about 4 years ago , his alkaline phosphatase level was around 82. His albumin is low at 2.6 and prealbumin low at 16.3 . TSH normal at 2.43. Urinalysis unremarkable. Progress Made With Physical, Occupational, And Speech Therapy: With physical therapy which was super vision for toilet transfers using a grab bar and walker as he did a shower transfer. Muf-bo-orpka re quired moderate assistance, minimum assistance with toileting tasks. Able to perform clothing manage ment, required setup assistance for upper body dressing, minimum assistance for lower body dressing, partial assistance for footwear. He was evaluated by Speech and had a BIMS score of 9 and a SLUMS sc ore of 12, very difficult. Assessment And Plan: Mr. Lopez is an 89-year-old patient and admitted to the inpatient rehabilitati on unit with a right patellar fracture, status post surgical repair. He still has decreased mobility , decreased physical functioning, cognitive impairment, in addition to moderate pain, risk of deep ve in thrombus. He has recent right knee patellar surgical repair and has a brace on the right knee. Eduardo soriano does continue to be on Tylenol for pain, tramadol as well for pain. He is on Xarelto 15 mg daily f or atrial fibrillation reducing risk of stroke. He is on Namenda for memory loss along with donepez il, baclofen for muscle spasms, Lipitor for dyslipidemia, Norvasc for blood pressure control. Contin ue with all of the medications and continue with physical, occupational, and speech therapy 3.5 hours , 5 of 7 days. YEIMI/ADDIE Voice ID: [id number] Report ID: [id number]
[2025-06-10 06:22] LABS: AST/SGOT 16 U/L (15-37); Albumin 2.8 g/dL (3.4-5.0); Albumin/Globulin Ratio 0.7 (1.1-1.8); Alkaline Phosphatase 935 U/L (45-117); Anion Gap 11.4 mEq/L (5.0-15.0); BUN Blood Urea Nitrogen 19 mg/dL (7-18); Globulin 3.8 g/dL (2.3-3.5); Glucose Level 103 mg/dL (74-106); Potassium 4.4 mEq/L (3.5-5.1)
[2025-06-10 06:24] LABS: ALT/SGPT < 14 U/L (16-61)
--- NOTE | 2025-06-10 20:53 | PN ---
Date of Progress Note: 06/10/2025 Subjective: The patient was seen this morning for followup. No new complaints or problems reported. Lying in bed, not in distress. Objective: Vital Signs: Reviewed. HEENT: Unremarkable. Lungs: Clear to auscultation. Heart: Sounds normal. Abdomen: Soft. Bowel sounds normal. No guarding, rigidity, tenderness, distention. Extremities: No leg edema. Impression: 1. Right patella fracture. 2. Vascular dementia. 3. Hypertension. Plan: Continue current medications. Continue physical therapy under guidance of Dr. Palma and we will see him tomorrow for followup. TRAVIS/MODL Voice ID: [id number] Report ID: [id number]
--- NOTE | 2025-06-11 02:43 | PN ---
Date of Progress Note: 06/10/2025 Time: 1:00 p.m. Subjective: Mr. Lopez is doing very well, happy about his progress so far, so he can be discharged. Denies any significant pain in the right patella area of the fracture, where he has a brace on. Objective: No fevers, chills, nausea, vomiting. Very mild pain in the right knee. Physical Examination: Vital Signs: Blood pressure is 120/59, pulse 70, respiratory rate 18, temperature 97.5, oxygen satur ation 100%. General: Mr. Lopez is resting comfortably in bed between therapy sessions. HEENT: He is normocephalic, atraumatic. Sclerae anicteric. Oropharynx pink and moist. Neck: Supple. Extremities: Right lower extremity some rkye-eh-awrjvouj edema and the right knee brace is in place. Laboratory Studies: He did have a basic metabolic panel done today showing sodium 138, potassium 4.4 , chloride 108, carbon dioxide 23, BUN 19, creatinine 0.99, calcium 8.2, AST 16, ALT less than 14, al kaline phosphatase did increase to 935, likely with his chemotherapy he is receiving. His serum prot ein 6.6, albumin 2.8. Progress Made With Physical, Occupational, And Speech Therapy: Today with physical therapy, he was a ble to ambulate 200 feet with standby assistance using a rolling walker up and down 15 steps with sanju ateral handrails. He did with occupational therapy minimum assistance to stand up from a chair. He needed contact guard assistance to stand up from a wheelchair, supervision for oral hygiene with good dynamic standing balance. He worked with speech, able to do temporal and spatial orientation tasks with 80% accuracy and moderate assistance. IADLs, 3-step ADLs also done with 20% accuracy. Assessment And Plan: An 89-year-old patient in rehabilitation unit with a right knee patellar fractu re, status post repair. He does have the brace on. He still has some mild decreased mobility, decre ased physical functioning cognitive impairment. In addition, he has risk of deep vein thrombosis. Eduardo soriano has pain and atrial fibrillation, dementia, muscle spasms, dyslipidemia. His plan will be to wayne nue with physical and occupational therapy 3.5 hours a day, 5 of 7 days. His medication list which h ave been noted. We will continue and managed by Dr. Villalta and be ready for discharge and continue the rapy via Home Health. He will follow up with Orthopedic Surgery as scheduled. YEIMI/ADDIE Voice ID: [id number] Report ID: [id number]
--- NOTE | 2025-06-12 01:09 | PN ---
Date of Progress Note: 06/11/2025 Time: 1:00 p.m. Subjective: Mr. Lopez is doing very well, happy so far. Denies any complaints. He wished to get _ chair, somewhat impulsive, has the chair alarm go off. Still of course has the right knee brace in place fracture and had surgery long back. He is so far happy, has no complaints. Review of Systems: No fevers, chills, nausea, vomiting. Again, mild pain in the right knee where he had the surgery. Physical Examination: Vital Signs: Blood pressure is 133/64, pulse 67, respiratory rate 18, temperature 97.6, oxygen satur ation 99%. General: Mr. Lopez is doing well, resting comfortably. Neuro: He has no focal deficits. No new findings on examination. Laboratory Studies: No new laboratory studies. X-ray/imaging: No new x-rays or imaging. Medications: His medications have been reviewed and are unchanged. Progress Made With Physical, Occupational, And Speech Therapy: Today with physical therapy, he ambul ated 250 feet twice with contact guard assistance using a rolling walker and mobilized wheelchair ano ther 250 feet with standby assistance. Dlk-ql-qcfbh transfers done with contact guard assistance, mu ltiple pfxfo-tr-havqq transfers also with contact guard assistance. With occupational therapy, super vision for kuh-tx-hymgj transfers with a rolling walker, standby assistance for ambulating from room to gym with a rolling walker, is doing very well with his exercises. With speech, he recalled 2 of 2 unrelated items after 40 second delay with moderate assistance. He had 100% accuracy and was indepe ndent for convergent naming tasks requiring moderate assistance to minimum assistance. Assessment And Plan: Mr. Lopez is an 89-year-old patient in the rehabilitation unit with a right pa tellar fracture. The patient has still decreased mobility, decreased physical functioning, but he is improving very well. He has dyslipidemia, hypertension, muscle spasms, urinary tract infection, dem entia, hypothyroidism, insomnia, atrial fibrillation, and gastroesophageal reflux. His plan will be to continue with physical, occupational, and speech therapy 3.5 hours, 5 of 7 days. The patient was told of the importance of not driving and he did voice understanding of that. We will continue with comorbid condition medications, which have been noted. Dr. Villalta is managing those medications. Aft er discharge, he will continue physical therapy via Home Health. YEIMI/ADDIE Voice ID: [id number] Report ID: [id number]
--- NOTE | 2025-06-12 05:08 | PN ---
Date of Progress Note: 06/11/2025 Subjective: The patient was seen this morning for followup, lying in bed, not in distress, denies an y new complaints. Objective: Vital Signs: Reviewed. HEENT: Unremarkable. Lungs: Clear to auscultation. Heart: Sounds normal. Abdomen: Soft. Bowel sounds normal. No guarding, rigidity, tenderness, distention. Extremities: No leg edema. Impression: 1. Right patella fracture. 2. Hypertension. 3. Vascular dementia. Plan: Continue current medication. Continue physical therapy under guidance of Dr. Palma and Mindy kolher see him tomorrow for followup. TRAVIS/MODL Voice ID: [id number] Report ID: [id number]
[2025-06-12 06:42] LABS: Absolute Lymphocytes (CBC) 0.8 K/uL (0.7-4.9); Hematocrit 26.2 % (39.6-49.0); Hemoglobin 8.7 g/dL (13.6-17.9); MCH 27.0 pg (27.0-35.0); MCHC 33.2 g/dL (32.0-36.0); MCV 81.4 fL (80-100); MPV 6.6 fL (7.6-11.3); Nucleated RBC Absolute Count 0.0 (0-0); Nucleated Red Blood Cells % 0.1 % (0-0); RBC Red Blood Cell Count 3.22 M/uL (4.33-5.43); White Blood Count 4.30 thou/uL (4.3-10.9)
[2025-06-12 07:09] LABS: Albumin 2.7 g/dL (3.4-5.0); Anion Gap 7.2 mEq/L (5.0-15.0); BUN Blood Urea Nitrogen 20.0 mg/dL (7-18); Glucose Level 101.0 mg/dL (74-106); Magnesium 2.4 mg/dL (1.6-2.4); Potassium 4.2 mEq/L (3.5-5.1); Prealbumin 15.3 mg/dL (20-40)
--- NOTE | 2025-06-12 23:29 | PN ---
Date of Progress Note: 06/12/2025 Subjective: The patient was seen this morning for followup. No new complaints or problems reported by the patient, lying in bed, not in distress. Objective: Vital Signs: Reviewed. HEENT: Unremarkable. Lungs: Clear to auscultation. Heart: Sounds normal. Abdomen: Soft. Bowel sounds normal. No guarding, rigidity, tenderness, distention. Extremities: No leg edema. Laboratory Data: WBC 4.3, hemoglobin 8.7, platelets 214. Sodium 140, potassium 4.2, chloride 111, b icarb 26, BUN 20, creatinine 0.94, glucose 101. Impression: 1. Right patella fracture. 2. Hypertension. 3. Anemia. 4. Vascular dementia. Plan: We will go ahead and continue current medications. Continue current antihypertensive medicati on and his dementia medication. Physical Therapy to be provided under guidance of Dr. Palma. I evaristo kohler see him tomorrow for followup. TRAVIS/MODL Voice ID: [id number] Report ID: [id number]
--- NOTE | 2025-06-13 02:24 | PN ---
Date of Progress Note: 06/12/2025 Time: 1:10 p.m. Subjective: John is again lying in bed in between therapy sessions, doing very well, he actually j okes. He has no significant pain in the right knee, where he had the patellar fracture. He has a kn ee brace in place. His big issue is to remove impairment with impulsivity. Objective: No fevers, chills, nausea, vomiting, myalgias, arthralgias. No rash. Physical Examination: Vital Signs: Blood pressure 125/62, pulse 65, respiratory rate 18, temperature 98.2, oxygen saturati on 97%. GENERAL: Mr. Lopez is resting in bed. He was in no distress. HEENT: He appears to be normocephalic, atraumatic. Sclerae anicteric. EXTREMITIES: Some mild edema in right lower extremity where he has knee brace in place, otherwise do ing very well. Laboratory Studies: White blood cell count 4.3, hemoglobin 8.7, platelets 214. He has sodium 140, p otassium 4.2, BUN 20, creatinine 0.94. His pre-albumin is 15.3. X-ray/imaging: No new x-rays or imaging. Progress Made With Physical, Occupational, And Speech Therapy: With physical therapy today, he did c omplete gait training 250 feet twice with contact guard to standby assistance. With as tolerated, he did go up and down 10 steps with contact guard assistance. Mobilized wheelchair 250 feet with stand by assistance, multiple qss-yv-ficsb transfers done with standby assistance and cuing required with o ccupational therapy, supervision for zjg-ca-lfjrk transfers, independent with supine to sit transfers . Did have some issues of safety awareness. Regarding speech able to do temporal and spatial orient ation tasks with 70% accuracy and moderate assistance. He recalled 2 of 2 unrelated items after 1 mi nute delay. He required moderate assistance and had 70% accuracy and sequencing tasks. Did converge nt naming independently with 100% accuracy. He required moderate assistance and 80% accuracy with di vergent naming tasks. Assessment And Plan: Mr. Lopez is an 89-year-old patient in rehabilitation unit with a right patell ar fracture. He was making good progress overall with physical, occupational, and speech therapy. I still had significant comorbidities, which include dementia, Alzheimer's type. In addition, decreas ed mobility, decreased physical functioning, dyslipidemia, muscle spasm, hypertension, iron deficienc y, hypothyroidism, insomnia, atrial fibrillation and pain related to his surgery and knee fracture. Plan: We will continue with physical, occupational, and speech therapy 3-1/2 hours, 5 of 7 days. Co ntinue with some medications, but noted the comorbid repacking rehabilitation significantly is cognit kody impairment. The patient is highly impulsive and is likely to get up and ambulate without assisti ve device or in a safe manner and may fall. He requires 24 hours care and supervision for that after leaving, that has been communicated with the family. Also, he is unsafe to drive a car and was comm unicated to the patient's family members who also be on board with that. YEIMI/ADDIE Voice ID: [id number] Report ID: [id number]
[2025-06-13] MEDS: PANTOPRAZOLE 40MG TABLET PO SCH (08:44)
--- NOTE | 2025-06-13 13:16 | P.RH.PN ---
Estimated Length of Stay: 11 Expected Discharge Date: 06/17/25 Discharge Disposition Plan: Home Family Support: Yes Nursing Home Goal: Mobility, Transfers, Self Care Vital Signs: Last Vital Signs Temp 97.8 F 06/13/25 07:13 Pulse 56 06/13/25 07:13 Resp 16 06/13/25 07:13 BP 111/55 L 06/13/25 07:13 Pulse Ox 95 06/13/25 07:13 Laboratory: Laboratory Last Values WBC 4.30 thou/uL (4.3-10.9) 06/12/25 06:14 RBC 3.22 M/uL (4.33-5.43) L 06/12/25 06:14 Hgb 8.7 g/dL (13.6-17.9) L 06/12/25 06:14 Hct 26.2 % (39.6-49.0) L 06/12/25 06:14 MCV 81.4 fL (80-100) 06/12/25 06:14 MCH 27.0 pg (27.0-35.0) 06/12/25 06:14 MCHC 33.2 g/dL (32.0-36.0) 06/12/25 06:14 RDW 17.6 % (12.1-15.2) H 06/12/25 06:14 Plt Count 214 thou/uL (152-406) 06/12/25 06:14 MPV 6.6 fL (7.6-11.3) L 06/12/25 06:14 Neutrophils % 61.7 % (41.7-73.7) 06/12/25 06:14 Lymphocytes % 19.3 % (15.3-44.8) 06/12/25 06:14 Monocytes % 12.4 % (3.3-12.3) H 06/12/25 06:14 Eosinophils % 4.8 % (0-4.4) H 06/12/25 06:14 Basophils % 1.8 % (0-1.3) H 06/12/25 06:14 Absolute Neutrophils 2.7 K/uL (1.8-8.0) 06/12/25 06:14 Absolute Lymphocytes 0.8 K/uL (0.7-4.9) 06/12/25 06:14 Absolute Monocytes 0.5 K/uL (0.1-1.3) 06/12/25 06:14 Absolute Eosinophils 0.2 K/uL (0-0.5) 06/12/25 06:14 Absolute Basophils 0.1 K/uL (0-0.5) 06/12/25 06:14 Sodium 140 mEq/L (136-145) 06/12/25 06:14 Potassium 4.2 mEq/L (3.5-5.1) 06/12/25 06:14 Chloride 111 mEq/L (98-107) H 06/12/25 06:14 Carbon Dioxide 26 mEq/L (21-32) 06/12/25 06:14 Anion Gap 7.2 mEq/L (5.0-15.0) 06/12/25 06:14 BUN 20 mg/dL (7-18) H 06/12/25 06:14 Creatinine 0.94 mg/dL (0.70-1.30) 06/12/25 06:14 Est GFR (CKD-EPI) 78 ml/min (=/>90) L 06/12/25 06:14 Glucose 101 mg/dL (74-106) 06/12/25 06:14 Calcium 8.3 mg/dL (8.5-10.1) L 06/12/25 06:14 Magnesium 2.4 mg/dL (1.6-2.4) 06/12/25 06:14 Total Bilirubin 0.6 mg/dL (0.2-1.0) 06/10/25 05:31 AST 16 U/L (15-37) 06/10/25 05:31 ALT < 14 U/L (16-61) L 06/10/25 05:31 Alkaline Phosphatase 935 U/L (45-117) H 06/10/25 05:31 Serum Total Protein 6.6 g/dL (6.4-8.2) 06/10/25 05:31 Albumin 2.7 g/dL (3.4-5.0) L 06/12/25 06:14 Globulin 3.8 g/dL (2.3-3.5) H 06/10/25 05:31 Albumin/Globulin Ratio 0.7 (1.1-1.8) L 06/10/25 05:31 Prealbumin 15.3 mg/dL (20-40) L 06/12/25 06:14 TSH 2.430 uIU/mL (0.358-3.740) 06/08/25 05:53 Urine Color Light-yellow (Yellow) 06/07/25 12:05 Urine Clarity Clear (Clear) 06/07/25 12:05 Urine pH 5.0 (5.0-7.0) 06/07/25 12:05 Ur Specific [place] 1.021 (1.005-1.030) 06/07/25 12:05 Glucose (UA)(Auto) Negative (Negative) 06/07/25 12:05 Urine Ketones Negative (Negative) 06/07/25 12:05 Urine Blood Negative (Negative) 06/07/25 12:05 Urine Nitrite Negative (Negative) 06/07/25 12:05 Urine Bilirubin Negative (Negative) 06/07/25 12:05 Urine Urobilinogen Normal (Normal) 06/07/25 12:05 Ur Leukocyte Esterase Negative Vineet/uL (Negative) 06/07/25 12:05 Urine Total Protein Negative (Negative) 06/07/25 12:05 Weight: 204 lb Wound Present: No Closed Surgical Incision Present: Yes Negative Pressure Wound Therapy Present: No Physician Update: Labs reviewed and are stable. Has Alzheimer's with moderate cognitive impairment. BIMS 9, SLUMS 12, 20 sec short term memory. Only able to recall 2 words for 30 seconds. Doing well with PT. CGA bed mobility, transfers, RW 250'a nd 15 stairs with CGA to min. Needs constant queing to off load the right knee. Met 4/4 STG, difficulty with lower body dressing, sequencing. To be discharged home with [facility]. Summary: Patient's care plan and terminal gauger goals have been reviewed and revised as necessary. Please see the Rehabilitation Signature page for all necessary signatures.
--- NOTE | 2025-06-14 13:29 | PN ---
Date of Progress Note: 06/13/2025 Subjective: The patient was seen this morning for followup. No new complaints or problems reported. Objective: Vital Signs: Reviewed. HEENT: Unremarkable. Lungs: Clear to auscultation. Heart: Sounds normal. Abdomen: Soft. Bowel sounds normal. No guarding, rigidity, tenderness, distention. Extremities: No leg edema. Impression: 1. Right patella fracture. 2. Hypertension. 3. Vascular dementia. Plan: We will go ahead and continue current medication. Continue physical therapy under guidance of Dr. aPlma and continue current medical management. I will see him tomorrow for followup. TRAVIS/MODL Voice ID: [id number] Report ID: [id number]
--- NOTE | 2025-06-15 10:20 | PN ---
Date of Progress Note: 06/14/2025 Subjective: The patient was seen this morning for followup. No new complaints or problems reported by the patient. Lying in bed, not in any distress. Objective: Vital Signs: Reviewed. HEENT: Unremarkable. Lungs: Clear to auscultation. Heart: Sounds normal. Abdomen: Soft. Bowel sounds normal. No guarding, rigidity, tenderness, distention. Extremities: No leg edema. Impression: 1. Right patella fracture. 2. Vascular dementia. 3. Hypertension. Plan: Continue current medication. The patient has not required any pain medications lately and is doing very well. He has his knee immobilizer in place, which actually has helped him very well. Amrit sampson physical therapy under guidance of Dr. Palma. Continue current medical management. I will see him tomorrow for followup. TRAVIS/MODL Voice ID: [id number] Report ID: [id number]
--- NOTE | 2025-06-15 10:49 | PN ---
Date of Progress Note: 06/15/2025 Subjective: The patient was seen this morning for followup. No new complaints or problems reported by the patient. He was lying in bed, not in any distress. Objective: Vital Signs: Reviewed. HEENT: Unremarkable. Lungs: Clear to auscultation. Heart: Sounds normal. Abdomen: Soft. Bowel sounds normal. No guarding, rigidity, tenderness, distention. Extremities: No leg edema. Impression: 1. Right patella fracture. 2. Hypertension. 3. Vascular dementia. Plan: Continue current medication. We will continue to follow with Dr. Palma for physical therap y. Continue current antihypertensive medications and I will see him tomorrow for followup. He is sc heduled to go home this coming week on Monday. TRAVIS/MODL Voice ID: [id number] Report ID: [id number]
[2025-06-16 05:52] LABS: Absolute Lymphocytes (CBC) 0.9 K/uL (0.7-4.9); Hematocrit 28.1 % (39.6-49.0); Hemoglobin 9.4 g/dL (13.6-17.9); MCH 27.1 pg (27.0-35.0); MCHC 33.5 g/dL (32.0-36.0); MCV 81.1 fL (80-100); MPV 6.7 fL (7.6-11.3); Nucleated RBC Absolute Count 0.0 (0-0); Nucleated Red Blood Cells % 0.3 % (0-0); RBC Red Blood Cell Count 3.46 M/uL (4.33-5.43); White Blood Count 3.90 thou/uL (4.3-10.9)
[2025-06-16 06:10] LABS: Albumin 2.9 g/dL (3.4-5.0); Anion Gap 7.0 mEq/L (5.0-15.0); BUN Blood Urea Nitrogen 22.0 mg/dL (7-18); Glucose Level 94.0 mg/dL (74-106); Magnesium 2.6 mg/dL (1.6-2.4); Potassium 4.0 mEq/L (3.5-5.1); Prealbumin 15.3 mg/dL (20-40)
--- NOTE | 2025-06-16 21:40 | PN ---
Date of Progress Note: 06/16/2025 Time: 1:10 p.m. Subjective: Mr. Lopez is doing very well. Lying in bed. He is very jovial. at bedside. He has no new complaints. His right knee patella fracture has of course no pain. There is a brace acro ss the right knee. Objective: No new complaints. No nausea, vomiting, myalgias, arthralgias, fever, or other complaint s. Physical Examination: Vital Signs: Blood pressure is 137/65, pulse 61, respiratory rate 18, temperature 98.2, oxygen satur ation 97%. GENERAL: Mr. Lopez is actually sitting beside the bed, in no acute distress. HEENT: He is normocephalic, atraumatic. Sclerae anicteric. Oropharynx pink, moist. Neck: Supple. Extremities: The right knee is in a brace. There is no issues there across the right knee. Laboratory Studies: White blood cell count 3.9, hemoglobin 9.4, platelets 244. Sodium 141, potassiu m 4.0, chloride 110, carbon dioxide 26, BUN 22, creatinine 0.98, glucose 104, calcium 8.7, magnesium 2.6, albumin 2.9, prealbumin 15.3. X-ray/imaging: No new x-rays or imaging. Medications: His medications have been reviewed and are unchanged. He is to be discharged today. Progress Made With Physical, Occupational, And Speech Therapy: With physical therapy today, he was a ble to perform trkpfk-em-uhu transfers independently, multiple oty-op-tsroe transfers done independen tly, multiple sgftu-or-pcoey transfers independently, simulated car transfer done independently. He did ambulate with a rolling walker 325 feet independently, ascended and descended 15 steps with bilat eral handrails independently, needed some verbal cuing and wheelchair mobilization was 250 feet indep endently. With occupational therapy, completed toileting in standing position with supervision for _ required supervision for showering, independent for upper body dressing, independent for ri ght knee brace in place and did have verbal cues to do his activities of daily living. With speech, he did drop on his BIMS score about 2 points to 7/15, but improved on his SLUMS score to 15/30, consi stent with moderate cognitive impairment. It is recommended that he will continue with ph ysical therapy via Home Health, physical, occupational, and speech therapy as well. The patient is d ischarged today, is following Dr. Villalta. Assessment And Plan: Mr. Lopez is an 89-year-old patient in rehabilitation with a right patella fra cture. He does have decreased mobility, decreased physical functioning, moderate cognitive impairmen t. In addition, dyslipidemia, muscle spasms, and potentially the patient has hypothyroidism, atrial fibrillation, and dementia, Alzheimer's type. In terms of his plan, he will have physical, occupatio nal, and speech therapy continued until discharge. His list of comorbid conditions and medications a re addressed by his primary care physician after discharge. He will follow up with Dr. Palma's cl in for dementia and with Dr. Villalta, his primary care physician as scheduled. His comorbidities are not negatively impacting his rehabilitation. The issue still limiting is cognitive functioning and m aking good decisions and supervision is highly recommended when the patient leaves and to communicate with family and he will have 24 hours supervision as he is able to do well once directed. YEIMI/MODL Voice ID: [id number] Report ID: [id number]
--- NOTE | 2025-06-16 22:26 | PN ---
Date of Progress Note: 06/16/2025 Subjective: The patient was seen this morning for followup. No new complaints or problems reported by the patient, lying in bed, not in distress. Objective: Vital Signs: Reviewed. HEENT: Unremarkable. Lungs: Clear to auscultation. Heart: Sounds normal. Abdomen: Soft. Bowel sounds normal. No guarding, rigidity, tenderness, distention. Extremities: No leg edema. Impression: 1. Right patella fracture. 2. Hypertension. 3. Vascular dementia. Plan: We will go ahead and continue current medication. Continue to follow with Dr. Palma. Cont inue physical therapy per his guidance and the patient is scheduled to go home tomorrow. I will see him in the morning. TRAVIS/MODL Voice ID: [id number] Report ID: [id number]
[2025-06-17 19:25] VITALS: BP 115/58; TEMP 98.1
--- NOTE | 2025-06-17 20:26 | PN ---
Date of Progress Note: 06/17/2025 Time: 1 p.m. Subjective: Mr. Lopez is resting comfortably in bed. He is ready for discharge today. He has no n ew complaints. Objective: No fevers, chills, nausea, vomiting, myalgias, arthralgias. Physical Examination: Vital Signs: Blood pressure 111/56, pulse is 67, respiratory rate 18, temperature 97.9, oxygen satur ating 92%. General: Mr. Lopez is lying comfortably in no acute distress. HEENT: He is normocephalic, atraumatic. Sclerae anicteric. Oropharynx pink and moist. Neck: Supple. Chest: Clear. Extremities: His right lower extremity does have a new brace in place where he has a patellar fractur e. No new findings. Laboratory Studies: No new laboratory studies. X-ray/imaging: No new x-rays or imaging. Medications: Reviewed and are unchanged. Progress Made With Physical, Occupational, And Speech Therapy: With speech therapy, he was oriented to temporal and spatial concepts with the use of external cues, neutralized independently. A short-t erm memory continues to fairly impacted. He did repeated stories, but every 10 minutes. He is orien marilyn to situation. Able to recall safety strategies related to transfers and his activities of daily living. Regarding his occupational therapy, he was independent with aqdzzr-oa-jja transfers. He was able to ambulate from room to bathroom with a rolling walker with supervision, did don his left shoe while sitting, required verbal cues to complete the tasks. With occupational therapy, supine to sit transfers done independently. Multiple bkb-lo-gpods transfers done independently, ambulate 325 feet independently. He did mobilize wheelchair 250 feet independently. Assessment/plan: Mr. Lopez is an 89-year-old patient in the rehabilitation with right patella fract ure. He has a brace in place. He has had surgery. He does have moderate to severe cognitive impair ment, decreased mobility, decreased fully functioning, dyslipidemia, hypertension, Alzheimer's salome ia. He also has hypothyroidism, insomnia and GE reflux and atrial fibrillation. Plan to discharge i s to continue with physical, occupational, and speech therapy 3.5 hours, 5 or 7 days. He has a numbe r of comorbid conditions are managed by Dr. Villalta. Given the patient has significant cognitive impair ment, it is highly recommended the patient be in a situation with 24-hour care and supervision for hi s improve safety awareness that will help him reduce risk of falling and injuring any knee or sufferi ng new injuries. He will follow up with Orthopedic surgery surgeon as scheduled and his primary care physician, Dr. Villalta and Dr. Palma's office for dementia after his discharge today. Followup with in a month. KAJAL Voice ID: [id number] Report ID: [id number]
--- NOTE | 2025-06-18 06:12 | DS ---
Date of Discharge: 06/17/2025 Hospital Course: The patient was seen this morning for followup, lying in bed, not in distress. No new complaints or problems reported by him. Physical Examination: Vital Signs: Reviewed. HEENT: Unremarkable. Lungs: Clear to auscultation. Heart: Sounds normal. Abdomen: Soft. Bowel sounds normal. No guarding, rigidity, tenderness, distention. Extremities: No leg edema. Right lower extremity external knee immobilizer in place. Laboratory Data: Upon admission on 06/08/2025, WBC 5.8, hemoglobin 9.2, platelets 231 and last CBC from yesterday WBC 3.9, hemoglobin 9.4, platelets 244. Chemistry upon admission, sodium 140, potassium 3.8, chloride 110, bicarb 24, BUN 10, creatinine 0.88, glucose 131. Liver function tests unremarkable except alkaline phosphatase 858. TSH 2.430 and serum albumin level 2.6. Last chemistry from yesterday, sodium 139, potassium 4, chloride 110, bicarb 26, BUN 22, creatinine 0.98, glucose 94. Serum albumin 2.9. Hospital Course: This is an 89-year-old male patient who was admitted to inpatient rehab for physical therapy. Please see dictated H and P for more information. The patient had fallen down and had a right patella fracture, which was surgically repaired and after the surgery, he was taken to halfway facility and now was admitted to inpatient rehab from halfway facility. Physical therapy was provided under guidance of Dr. Palma. The patient did very well with physical therapy and today he was determined stable for discharge from rehab point of view. Medically, he is stable for discharge. The patient has not required any pain medications, so he will not need to go home with any prescription for pain medication. Final Diagnoses: 1. Right patella fracture, transverse, with displacement, initial visit, status post surgery. 2. Anemia, chronic, unspecified. 3. Vascular dementia. 4. Hypertension. 5. Hyperlipidemia. 6. Paroxysmal atrial fibrillation. 7. Chronic kidney disease stage 3A. 8. 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 9. Colon cancer. 10. Gastroesophageal reflux disease. 11. Moderate malnutrition. Discharge Medications And Instructions: Continue all prior home medications as below: Amlodipine 5 mg daily, Nubeqa as prescribed by oncologist, donepezil 10 mg daily, finasteride 5 mg daily, levothyroxine 125 mcg daily, memantine 10 mg 2 times a day, metoprolol 25 mg 2 times a day, omeprazole 20 mg daily, Xarelto 15 mg daily, and simvastatin 20 mg daily at bedtime. Follow up with mechanical integrity specialist as per your instruction. Follow up with Dr. Villalta in two weeks TRAVIS/MODL Voice ID: [id number] Report ID: [id number]
== END 2025-06-17 19:15 | disposition home health service (06) | DRG 560 ==
LOC: 5TH 11:05
PROVIDERS: ADMIT Internal Medicine; ATTEND Internal Medicine
DX: S82.031D Displaced transverse fracture of right patella, subsequent encounter for closed fracture with routine healing (principal); C18.9 Malignant neoplasm of colon, unspecified; C79.51 Secondary malignant neoplasm of bone; N39.0 Urinary tract infection, site not specified; E44.0 Moderate protein-calorie malnutrition; M25.561 Pain in right knee; M17.11 Unilateral primary osteoarthritis, right knee; G30.1 Alzheimer's disease with late onset; F02.B0 Dementia in other diseases classified elsewhere, moderate, without behavioral disturbance, psychotic disturbance, mood disturbance, and anxiety; F01.B0 Vascular dementia, moderate, without behavioral disturbance, psychotic disturbance, mood disturbance, and anxiety; I12.9 Hypertensive chronic kidney disease with stage 1 through stage 4 chronic kidney disease, or unspecified chronic kidney disease; N18.31 Chronic kidney disease, stage 3a; I48.0 Paroxysmal atrial fibrillation; M62.838 Other muscle spasm; G57.90 Unspecified mononeuropathy of unspecified lower limb; C61 Malignant neoplasm of prostate; D64.9 Anemia, unspecified; E78.5 Hyperlipidemia, unspecified; K21.9 Gastro-esophageal reflux disease without esophagitis; E03.9 Hypothyroidism, unspecified; G47.33 Obstructive sleep apnea (adult) (pediatric); G47.00 Insomnia, unspecified; E61.1 Iron deficiency; J30.2 Other seasonal allergic rhinitis; Z98.890 Other specified postprocedural states; Z68.28 Body mass index [BMI] 28.0-28.9, adult; Z79.01 Long term (current) use of anticoagulants
CPT/HCPCS: 36415; 80048; 80053; 81003; 82040; 83735; 84134; 84443; 85025; 92523; 97110; 97112; 97116; 97129; 97162; 97165; 97530; 97542